=== PATIENT | female | born 1985 | race Caucasian/White ===

== ENCOUNTER 2020-11-10 23:55 | Inpatient (IN) | payer BC, OTHER ==
[~2020-11-10] VITALS: Ht 160 cm; Wt 101.6 kg
[2020-11-11] VITALS (7 sets, daily range): BP systolic 107–139
[2020-11-11] MEDS ORDERED: KETOROLAC TROMETHAMINE 30 MG VIAL ONE (00:28)
[2020-11-11] MEDS ORDERED: KETOROLAC TROMETHAMINE 30 MG VIAL IVP ONE (00:30)
[2020-11-11] MEDS ORDERED: MORPHINE 4 MG INJ. 4 MG/ML VIAL IVP ONE (00:30)
[2020-11-11] MEDS ORDERED: NACL 0.9% 1,000 ML IV ONE (00:30)
[2020-11-11] MEDS ORDERED: ONDANSETRON HCL 4 MG/2 ML VIAL IVP ONE (00:30)
[2020-11-11 00:32] LABS: BILIRUBIN,URINE NEGATIVE (NEGATIVE); BLOOD, URINE 1+ (NEGATIVE); CLARITY/URINE SLIGHTLY CLOUDY (CLEAR); COLOR,URINE YELLOW (YELLOW); GLUCOSE,URINE NEGATIVE (NEGATIVE); KETONES,URINE NEGATIVE (NEGATIVE); LEUKOCYTE ESTERASE ,URINE 1+ (NEGATIVE); NITRITE, URINE NEGATIVE (NEGATIVE); PH,URINE 6.5 (5.0-8.0); PROTEIN URINE NEGATIVE (NEGATIVE)
[2020-11-11 00:59] LABS: BASOPHILS # (AUTO) 0.2 K/uL (0.0-0.2); BASOPHILS % (AUTO) 2.5 % (0.0-2.0); EOSINOPHILS # (AUTO) 0.2 K/uL (0.0-0.4); EOSINOPHILS % (AUTO) 2.5 % (0.0-4.0); HEMATOCRIT 41.1 % (36-48); HEMOGLOBIN 13.9 g/dL (12.0-16.0); LYMPHOCYTES # (AUTO) 1.7 K/uL (1.0-5.5); LYMPHOCYTES % (AUTO) 18.2 % (20.5-51.5); MEAN CORPUSCULAR HEMOGLOBIN 30 pg (27-31); MEAN CORPUSCULAR HGB CONC 34 % (32-36); MEAN CORPUSCULAR VOLUME 90 fL (79.0-98.0); MONOCYTES # (AUTO) 0.5 K/uL (0.0-1.0); MONOCYTES % (AUTO) 5.6 % (1.7-9.3); NEUTROPHILS # (AUTO) 6.6 K/uL (1.8-7.7); NEUTROPHILS % (AUTO) 71.2 % (40.0-70.0); PLATELET COUNT (AUTO) 231 K/uL (130-430); RED BLOOD CELL COUNT(AUTO) 4.57 MIL/uL (4.2-6.2); RED CELL DISTRIBUTION WIDTH 12.4 % (9.0-15.0); WHITE BLOOD COUNT (AUTO) 9.3 K/uL (4.8-10.8)
[2020-11-11 01:01] LABS: CALCIUM 9.1 mg/dL (8.4-11.0); CREATININE 0.69 mg/dL (0.55-1.30); POTASSIUM 3.4 mmol/L (3.5-5.1)
[2020-11-11 01:06] LABS: ALBUMIN 3.7 g/dL (3.4-4.8); TOTAL BILIRUBIN 0.5 mg/dL (0.0-1.0)
[2020-11-11 01:10] LABS: BACTERIA,URINE FEW /HPF (None Seen)
[2020-11-11] MEDS ORDERED: PIPERACILLIN/TAZO 3.375 GM in NS 50 ML IV ONE (01:30)
[2020-11-11] MEDS ORDERED: PIPERACILLIN/TAZOBACTAM 3.375 GM/VIAL (ZOSYN) IV ONE (02:08)
[2020-11-11] MEDS ORDERED: ACETAMINOPHEN 325 MG TABLET PO PRN (05:15)
[2020-11-11] MEDS ORDERED: ALBUTEROL SULFATE 0.083% 2.5 MG/3 ML VIAL.NEB INH PRN (05:15)
[2020-11-11] MEDS ORDERED: NACL 0.9% 1,000 ML IV SCH (05:15)
[2020-11-11] MEDS ORDERED: KCL 10 mEq in 50 mL (PREMIX) 100 ML IV ONE (05:30)
[2020-11-11] MEDS ORDERED: LEVOFLOXACIN IN DEXTROSE 5 % 100 ML IV ONE (06:06)
[2020-11-11] MEDS ORDERED: metroNIDAZOLE 500 mg/NS 100 ML IV ONE (06:07)
[2020-11-11] MEDS: LEVOFLOXACIN IN DEXTROSE 5 % 100 ML IV SCH (06:16)
[2020-11-11] MEDS: metroNIDAZOLE 500 mg/NS 100 ML IV SCH ×3 (06:16→23:08)
[2020-11-11] MEDS: KETOROLAC TROMETHAMINE 15 MG VIAL IVP PRN ×2 (07:05→19:31)
[2020-11-11 07:41] LABS: PROTHROMBIN TIME 10.4 SECS (9.5-12.5)
[2020-11-11 07:46] LABS: ALBUMIN 3.1 g/dL (3.4-4.8); CALCIUM 8.2 mg/dL (8.4-11.0); CREATININE 0.68 mg/dL (0.55-1.30); POTASSIUM 3.9 mmol/L (3.5-5.1); TOTAL BILIRUBIN 0.5 mg/dL (0.0-1.0)
[2020-11-11 07:57] LABS: BASOPHILS % (AUTO) 0.6 % (0.0-2.0); EOSINOPHILS # (AUTO) 0.2 K/uL (0.0-0.4); EOSINOPHILS % (AUTO) 2.1 % (0.0-4.0); HEMATOCRIT 36.7 % (36-48); HEMOGLOBIN 12.4 g/dL (12.0-16.0); LYMPHOCYTES % (AUTO) 28.1 % (20.5-51.5); MEAN CORPUSCULAR HEMOGLOBIN 30 pg (27-31); MEAN CORPUSCULAR HGB CONC 34 % (32-36); MEAN CORPUSCULAR VOLUME 90 fL (79.0-98.0); MONOCYTES # (AUTO) 0.4 K/uL (0.0-1.0); MONOCYTES % (AUTO) 5.5 % (1.7-9.3); NEUTROPHILS # (AUTO) 4.6 K/uL (1.8-7.7); NEUTROPHILS % (AUTO) 63.7 % (40.0-70.0); PLATELET COUNT (AUTO) 211 K/uL (130-430); RED CELL DISTRIBUTION WIDTH 12.8 % (9.0-15.0); WHITE BLOOD COUNT (AUTO) 7.2 K/uL (4.8-10.8)
[2020-11-11] MEDS ORDERED: ONDANSETRON HCL 4 MG/2 ML VIAL IVP PRN (08:30)
[2020-11-11] MEDS ORDERED: fentaNYL CITRATE/PF 100 MCG/2 ML AMP IVP PRN ×2 (08:30)
[2020-11-11] MEDS ORDERED: NEOSTIGMINE METHYLSULFATE 1 MG/ML, 10 ML VIAL IVP ONE (09:25)
[2020-11-11] MEDS ORDERED: MIDAZOLAM HCL 5 MG/5 ML VIAL IVP ONE (09:25)
[2020-11-11] MEDS ORDERED: GLYCOPYRROLATE 0.2 MG/ML VIAL IJ ONE (09:25)
[2020-11-11] MEDS ORDERED: BUPIVACAINE /EPINEPHRINE/PF 0.25% 30 ML VIAL INJ ONE (09:25)
[2020-11-11] MEDS ORDERED: fentaNYL CITRATE/PF 100 MCG/2 ML AMP IVP ONE (09:25)
[2020-11-11] MEDS ORDERED: NS 1000 ML IV.SOLN IV ONE (09:25)
[2020-11-11] MEDS ORDERED: LR 1,000 ML IV.SOLN IV ONE (09:25)
[2020-11-11] MEDS ORDERED: SEVOFLURANE 15 MIN GAS INH ONE (09:25)
[2020-11-11] MEDS ORDERED: IOHEXOL 300 mgI/mL, 50 mL INFUS..BTL IV ONE (09:25)
[2020-11-11] MEDS ORDERED: PROPOFOL 200MG/ 20ML VIAL (DIPRIVAN) IV ONE (09:25)
[2020-11-11] MEDS: fentaNYL CITRATE/PF 100 MCG/2 ML AMP ONE ×2 (11:50→11:54)
[2020-11-11] MEDS: D5/0.45 NS 1,000 ML IV SCH ×2 (13:44→21:15)
[2020-11-11] MEDS: CEFAZOLIN 1 GM IVPB PREMIX 50 ML IV SCH ×2 (13:46→19:31)
[2020-11-11] MEDS: ONDANSETRON HCL 4 MG/2 ML VIAL IVP PRN (21:42)
[2020-11-12 02:48] VITALS: BP_SYST 111
[2020-11-12] MEDS: LEVOFLOXACIN IN DEXTROSE 5 % 100 ML IV SCH (05:04)
[2020-11-12] MEDS: D5/0.45 NS 1,000 ML IV SCH ×2 (05:05→16:54)
[2020-11-12] MEDS: metroNIDAZOLE 500 mg/NS 100 ML IV SCH ×3 (06:19→21:29)
[2020-11-12] MEDS: ONDANSETRON HCL 4 MG/2 ML VIAL IVP PRN (06:31)
[2020-11-12] MEDS: KETOROLAC TROMETHAMINE 15 MG VIAL IVP PRN ×2 (06:32→14:45)
[2020-11-12 06:47] LABS: BASOPHILS % (AUTO) 0.4 % (0.0-2.0); EOSINOPHILS % (AUTO) 0.5 % (0.0-4.0); HEMATOCRIT 34.8 % (36-48); HEMOGLOBIN 11.8 g/dL (12.0-16.0); LYMPHOCYTES # (AUTO) 1.9 K/uL (1.0-5.5); LYMPHOCYTES % (AUTO) 22.9 % (20.5-51.5); MEAN CORPUSCULAR HEMOGLOBIN 31 pg (27-31); MEAN CORPUSCULAR HGB CONC 34 % (32-36); MEAN CORPUSCULAR VOLUME 90 fL (79.0-98.0); MONOCYTES # (AUTO) 0.7 K/uL (0.0-1.0); MONOCYTES % (AUTO) 9.1 % (1.7-9.3); NEUTROPHILS # (AUTO) 5.5 K/uL (1.8-7.7); NEUTROPHILS % (AUTO) 67.1 % (40.0-70.0); PLATELET COUNT (AUTO) 193 K/uL (130-430); RED BLOOD CELL COUNT(AUTO) 3.87 MIL/uL (4.2-6.2); RED CELL DISTRIBUTION WIDTH 12.7 % (9.0-15.0); WHITE BLOOD COUNT (AUTO) 8.1 K/uL (4.8-10.8)
[2020-11-12 07:03] LABS: ALBUMIN 2.8 g/dL (3.4-4.8); CALCIUM 7.6 mg/dL (8.4-11.0); CREATININE 0.65 mg/dL (0.55-1.30); POTASSIUM 3.2 mmol/L (3.5-5.1); TOTAL BILIRUBIN 0.9 mg/dL (0.0-1.0)
[2020-11-12 07:49] VITALS: BP_SYST 102
[2020-11-12 12:00] VITALS: BP_SYST 92
[2020-11-12 16:00] VITALS: BP_SYST 100
[2020-11-12 20:00] VITALS: BP_SYST 95
[2020-11-12] MEDS ORDERED: POTASSIUM CHLORIDE 20 MEQ TAB.PRT.SR PO ONE (20:15)
[2020-11-13 00:27] VITALS: BP_SYST 123
[2020-11-13] MEDS: metroNIDAZOLE 500 mg/NS 100 ML IV SCH (05:06)
[2020-11-13] MEDS: LEVOFLOXACIN IN DEXTROSE 5 % 100 ML IV SCH (06:26)
[2020-11-13 08:00] VITALS: BP_SYST 109
[2020-11-13 12:50] VITALS: BP_SYST 111
[2020-11-13 13:38] VITALS: BP_SYST 110
[2020-11-13 16:00] VITALS: BP_SYST 110
== END 2020-11-13 16:30 | disposition home or self-care (01) | DRG 418 ==
LOC: SED 23:55 → SMU 11-11 01:48
PROVIDERS: ADMIT Internal Medicine Hospice and Palliative Medicine; ATTEND Internal Medicine Hospice and Palliative Medicine
PROC: BF131ZZ Fluoroscopy of Gallbladder and Bile Ducts using Low Osmolar Contrast (ICD-10-PCS; 2020-11-11)
PROC: 0FT44ZZ Resection of Gallbladder, Percutaneous Endoscopic Approach (ICD-10-PCS; principal; 2020-11-11 09:45)
DX: K80.00 Calculus of gallbladder with acute cholecystitis without obstruction (principal); N39.0 Urinary tract infection, site not specified; Z20.822 Contact with and (suspected) exposure to COVID-19; K66.0 Peritoneal adhesions (postprocedural) (postinfection); E66.01 Morbid (severe) obesity due to excess calories; E87.6 Hypokalemia; Z88.5 Allergy status to narcotic agent; Z88.0 Allergy status to penicillin; Z68.39 Body mass index [BMI] 39.0-39.9, adult
CPT/HCPCS: 36415; 71045; 76000; 76376; 76700-TC; 80053; 81000; 83605; 83690; 84484; 84703; 85025; 85610-TC; 87040-TC; 87081; 87086; 88304; 93005; 96361; 96365; 96375; 99285; C1727; J0690; J1885; J1956; J2250; J2405; J2543; J2704; J2710; J3010; J3480; J3490; J7030; J7120; Q9967